=== PATIENT | female | born 1995 | race Caucasian/White ===

== ENCOUNTER 2017-10-04 19:54 | Emergency (ER) | payer SELFPAY ==
[~2017-10-04] VITALS: Ht 172.7 cm; Wt 125.0 kg
[~2017-10-04 19:54] MED LIST: PREN1TAB49
[2017-10-04 20:32] VITALS: Ht 172.7 cm; Wt 125.0 kg
== END 2017-10-04 23:00 | disposition left against medical advice (07) ==
LOC: FTE 19:54
DX: Z53.21 Procedure and treatment not carried out due to patient leaving prior to being seen by health care provider (principal)